=== PATIENT | male | born 1960 | race Caucasian/White ===

== ENCOUNTER 2017-08-13 20:40 | Emergency (ER) | payer BC ==
[2017-08-13 20:51] VITALS: BP 140/91
[2017-08-13] MEDS ORDERED: Lidocaine 2% PF * 5 ML VIAL INJ ONE ×3 (21:02→21:42)
[2017-08-13] MEDS ORDERED: Bupivacaine 0.25% SDV* 30 ML INJ ONE (21:03)
[2017-08-13] MEDS ORDERED: Tetan/Diph/Pertus SYR(Tdap)* 0.5 ML SYR(BOOSTRIX) use SYR IM ONE (21:04)
--- NOTE | 2017-08-13 21:09 | UC ---
Laceration HPI - HPI Summary HPI Summary: This is a 57-year-old male that presents here with approximately 8 hour old skin injuries to his right third fourth and fifth fingers. Injuries to his fourth and fifth fingers are small avulsions. He has a large flap laceration of his right middle finger. He is unsure of his last tetanus shot. - History Of Current Complaint Chief Complaint: UCUpperExtremity Stated Complaint: FINGERS LACS Time Seen by Provider: 08/13/17 20:55 Hx Obtained From: Patient Laceration Location: Finger Mechanism Of Injury: Sharp Trauma Onset/Duration: Sudden Onset Severity: Mild Pain Intensity: 4 Pain Scale Used: 0-10 Numeric Aggravating Factors: Nothing Hands: 1 - flap lac - Allergies/Home Medications Allergies/Adverse Reactions: Allergies Allergy/AdvReac Type Severity Reaction Status Date / Time bupropion [From Wellbutrin] Allergy Severe Rash Verified 08/13/17 20:51 PMH/Surg Hx/FS Hx/Imm Hx Previously Healthy: Yes GI/ History: Gastroesophageal Reflux - Surgical History Surgical History: Yes Surgery Procedure, Year, and Place: [facility]- FX (left) ankle + hardware, [facility]- (left) ulner nerve release & (left) little finger,. [facility]- (left) ankle; remove left distal fibula plate & screws - Family History Known Family History: Positive: Hypertension - Social History Alcohol Use: Weekly Alcohol Amount: 2-3/ weeks Substance Use Type: None Smoking Status (MU): Former Smoker Type: Cigarettes Length of Time of Smoking/Using Tobacco: 10 years Have You Smoked in the Last Year: No When Did the Patient Quit Smoking/Using Tobacco: 2010 - Immunization History Most Recent Tetanus Shot: unknown Review of Systems Constitutional: Negative Skin: Negative Eyes: Negative ENT: Negative Respiratory: Negative Cardiovascular: Negative Gastrointestinal: Negative Genitourinary: Negative Motor: Negative Neurovascular: Negative Musculoskeletal: Negative Neurological: Negative Psychological: Negative Is Patient Immunocompromised?: No All Other Systems Reviewed And Are Negative: Yes Physical Exam Triage Information Reviewed: Yes Appearance: Well-Appearing, No Pain Distress, Well-Nourished Vital Signs: Initial Vital Signs Temp 98 F 08/13/17 20:46 Pulse 82 08/13/17 20:46 Resp 20 08/13/17 20:46 BP 140/91 08/13/17 20:46 Pulse Ox 96 08/13/17 20:46 Vital Signs Reviewed: Yes Eyes: Positive: Conjunctiva Clear ENT: Positive: Hearing grossly normal. Negative: Nasal congestion, Nasal drainage, Tonsillar exudate, Trismus Neck: Positive: Supple, Nontender Respiratory: Positive: Lungs clear, Normal breath sounds, No respiratory distress Cardiovascular: Positive: RRR, No Murmur Abdomen Description: Positive: Nontender Bowel Sounds: Positive: Present Musculoskeletal Exam: Normal Neurological Exam: Normal Psychological Exam: Normal Skin Exam: Other - lac Laceration Repair - Laceration Repair 1 Procedure Summary: laceration repair right middle finger Description: Irregular - irregular flap laceration, flap pink but attacked by narrow island of tissue Laceration Size After Repair: Length (cm) - 3.1, Width (mm) - 2, Depth (mm) - 1- 3 Modified For Repair: No Type Injection: Digital Anesthesia Used: 2.0% Lido Cleansing Completed Via Routine Prep: Yes Irrigation With Pressure Irrigation Device: Yes Closure Material: Sutures Closure Method: Single Layer Suture Of: Skin Suture Type: Nylon - 8 5-0 nylon Laceration Course/Dx - Differential Dx - Laceration/Wound Provider Diagnoses: right middle finger laceration Discharge - Sign-Out/Discharge Documenting (check all that apply): Discharge/Admit/Transfer - Discharge Plan Condition: Critical Disposition: HOME Patient Education Materials: Finger Laceration (ED) Referrals: Lisandro Ortiz DO [Primary Care Provider] - Additional Instructions: tylenol or advil for pain elevate elevate elevate recheck 7/8 in AM you have a flap laceration and we need to check the viability of the flap you may keep dressing on until recheck suture removal in about 10 days - Billing Disposition and Condition Condition: CRITICAL Disposition: Home
== END 2017-08-13 22:30 | disposition home or self-care (01) ==
LOC: UCEAST 20:40
DX: S61.212A Laceration without foreign body of right middle finger without damage to nail, initial encounter (principal); S60.944A Unspecified superficial injury of right ring finger, initial encounter; S60.946A Unspecified superficial injury of right little finger, initial encounter; Z88.8 Allergy status to other drugs, medicaments and biological substances; Z87.891 Personal history of nicotine dependence; X58.XXXA Exposure to other specified factors, initial encounter; Y92.9 Unspecified place or not applicable
CPT/HCPCS: 12002; 90715; 99211; G0463

== ENCOUNTER → 2018-05-13 16:08 | Emergency (ER) | payer BC, OTHER ==
[~2018-05-13 16:08] MED LIST: Cephalexin CAP* 500 MG PO ONE; HYDROcodone/ACETAMIN 5-325 MG* 1 TAB PO ONE; Lidocaine 1% INJ* 10 MG/ML 30 ML SDV ONE; Tetan/Diph/Pertus SYR(Tdap)* 0.5 ML SYR(BOOSTRIX) use SYR IM ONE; fentaNYL* 50 MCG/ML 2 ML VIAL (100 MCG VIAL) IV SLOW PU ONE; fentaNYL* 50 MCG/ML 2 ML VIAL (100 MCG VIAL) ONE
--- NOTE | 2018-05-13 16:41 | ED ---
Upper Extremity Pain - HPI Summary HPI Summary: This patient is a 58 year old M brought in by EMS with a chief complaint of left hand injury since just [employer]. 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 The patient rates the pain 5/10 in severity. The patient states he heard a crack at the time of injury. The last time he had a tetanus shot was a while ago. Vitals in the room: HR 71 bpm, BP 138/81. - History of Current Complaint Chief Complaint: EDExtremityUpper Stated Complaint: FRACTURED FINGERS PER EMS Time Seen by Provider: 05/13/18 16:29 Hx Obtained From: Patient Mechanism Of Injury: Other - crushed Onset/Duration: Started Minutes Ago Pain Location: Hand - left - Allergies/Home Medications Allergies/Adverse Reactions: Allergies Allergy/AdvReac Type Severity Reaction Status Date / Time bupropion [From Wellbutrin] Allergy Severe Rash Verified 05/13/18 16:19 PMH/Surg Hx/FS Hx/Imm Hx Endocrine/Hematology History: Denies: Hx Sickle Cell Disease Cardiovascular History: Denies: Other Cardiovascular Problems/Disorders Respiratory History: Denies: Other Respiratory Problems/Disorders GI History: Reports: Hx Gastroesophageal Reflux Disease - ON MEDICATION UNDER CONTROL History: Denies: Other Problems/Disorders Musculoskeletal History: Reports: Hx Orthopedic Injury - (left) ankle FX Denies: Other Musculoskeletal History Sensory History: Reports: Hx Contacts or Glasses - READING Denies: Hx Hearing Aid Opthamlomology History: Reports: Hx Contacts or Glasses - READING Neurological History: Denies: Other Neuro Impairments/Disorders - Surgical History Surgery Procedure, Year, and Place: [facility]- FX (left) ankle + hardware, [facility]- (left) ulner nerve release & (left) little finger,. [facility]- (left) ankle; remove left distal fibula plate & screws Hx Anesthesia Reactions: No Infectious Disease History: No Infectious Disease History: Denies: Hx Clostridium Difficile, Hx Hepatitis, Hx Human Immunodeficiency Virus (HIV), Hx of Known/Suspected MRSA, Hx Shingles, Hx Tuberculosis, Hx Known/ Suspected VRE, Hx Known/Suspected VRSA, History Other Infectious Disease, Traveled Outside the [place] in Last 30 Days - Family History Known Family History: Positive: Hypertension - Social History Occupation: Employed Full-time Alcohol Use: Weekly Alcohol Amount: 2-3/ weeks Substance Use Type: Reports: None Smoking Status (MU): Former Smoker Type: Cigarettes Length of Time of Smoking/Using Tobacco: 10 years Have You Smoked in the Last Year: No Review of Systems Positive: Decreased ROM - left hand Positive: Other - laceration on left fourth finger All Other Systems Reviewed And Are Negative: Yes Physical Exam - Summary Physical Exam Summary: Constitutional: Well-developed, Well-nourished, Alert. Skin: Warm, Dry. There is a 1cm laceration on the medial and lateral aspect of the distal phalanx of the left fourth digit. Distal sensation is intact. There is a subungual hematoma. HENT: Normocephalic; Atraumatic Eyes: Conjunctiva normal Neck: Musculoskeletal ROM normal neck. Cardio: Rhythm regular, rate normal, Heart sounds normal; Intact distal pulses; The pedal pulses are 2+ and symmetric. Radial pulses are 2+ and symmetric. Pulmonary/Chest wall: Effort normal. Abd: Soft. Neuro: Alert, Oriented x3 Psych: Mood and affect Normal Triage Information Reviewed: Yes Vital Signs On Initial Exam: Initial Vitals Temp Pulse Resp BP Pulse Ox 98.4 F 72 18 138/81 95 05/13/18 16:13 05/13/18 16:13 05/13/18 16:13 05/13/18 16:13 05/13/18 16:13 Vital Signs Reviewed: Yes Procedures - Procedure Summary Procedure Summary: Digital block of left fourth finger - Laceration/Wound Repair 1 Location: upper extremity - left hand, 4th digit, lateral Description: Linear Length, Depth and Shape: Linear, 5 mm Betadine Prep?: Yes Irrigated w/ Saline (ccs): 50 Laceration/Wound Explored: clean Closure: Single Layer Suture Type: Nylon Number of Sutures: 1 Layer Closure?: No 2 Location: upper extremity - left hand, medial, 5 mm Description: Linear Anesthesia: Local Length, Depth and Shape: Linear, 5mm Betadine Prep?: Yes Irrigated w/ Saline (ccs): 50 - . Laceration/Wound Explored: clean Closure: Single Layer Suture Type: Nylon Number of Sutures: 2 Layer Closure?: No Sterile Dressing Applied?: No 3 Location: upper extremity - left hand, 4th digit, medial Description: Linear Anesthesia: Local Length, Depth and Shape: linear, 5 mm Betadine Prep?: Yes Irrigated w/ Saline (ccs): 50 Laceration/Wound Explored: clean Closure: Single Layer Suture Type: Nylon Number of Sutures: 2 - Nail Trepanation Left 4th Digit Method of Drainage: nail cauterized Sterile Dressing Applied: Yes Finger Splint: No Diagnostics - Vital Signs Vital Signs Temp Pulse Resp BP Pulse Ox 05/13/18 16:28 20 05/13/18 16:13 98.4 F 72 18 138/81 95 - Laboratory Lab Statement: Any lab studies that have been ordered have been reviewed, and results considered in the medical decision making process. - Radiology hand x ray Radiology Interpretation Completed By: Radiologist Summary of Radiographic Findings: Minimally displaced comminuted fracture involving the tuft of the fourth distal. phalanx with overlying soft tissue swelling. Old healed fracture at the tuft of the third distal phalanx noted. Old healed fracture. at the fifth metacarpal. Negative for dislocation. Mild polyarticular osteoarthritis. ED physician has reviewed this report. Course/Dx - Course Course Of Treatment: This patient is a 58 year old M brought in by EMS with a chief complaint of left hand injury since just [employer]. 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 The patient rates the pain 5/10 in severity. Left hand x ray reveals, per radiologist, Minimally displaced comminuted fracture involving the tuft of the fourth distal. phalanx with overlying soft tissue swelling. Old healed fracture at the tuft of the third distal phalanx noted. Old healed fracture. at the fifth metacarpal. Negative for dislocation. Mild polyarticular osteoarthritis. In the ED course the patient was given Fentanyl, Hydrocodone, Cephalexin, and Tetan. We discussed patient care with Dr. Solis, Orthopedics, and they recommended follow up next week, trephination of the nail, loose closure, and antibiotics. Patient will be discharged with prescription for Cephalexin and follow up from Dr. Solis. The patient is agreeable with this plan. - Diagnoses Provider Diagnoses: Subungual hematoma of digit of hand, Open fracture of phalanx of digit of hand , Finger laceration - Physician Notifications Discussed Care of Patient With: Tyree Solis - recommended antibiotics, trephination of the nail Time Discussed With Above Provider: 18:45 Instructed by Provider To: Have Pt Call For Appt. - next week Discharge - Discharge Plan Prescriptions: Cephalexin CAP* [Keflex CAP*] 500 mg PO QID #20 cap HYDROcodone/ACETAMIN 5-325 MG* [[facility] 5-325 TAB*] 1 tab PO Q6H PRN #10 tab MDD 4 PRN Reason: Pain Scale 6-10 Patient Education Materials: Subungual Hematoma (ED), Finger Fracture (ED), Finger Laceration (ED) Referrals: Lisandro Ortiz DO [Primary Care Provider] - Tyree Solis MD [Medical Doctor] - 1 Week Additional Instructions: Follow up with Dr. Solis next week. - Attestation Statements Document Initiated by Scribe: Yes Documenting Scribe: Wisam Munoz Provider For Whom Scribe is Documenting (Include Credential): Fly Paul MD Scribe Attestation: Wisam Cordova, scribed for Fly Paul MD on 05/13/18 at 1958. Status of Scribe Document: Viewed
[2018-05-13 20:15] VITALS: BP 138/101
== END | disposition home or self-care (01) ==
LOC: ED 16:08
DX: S61.215A Laceration without foreign body of left ring finger without damage to nail, initial encounter (principal); W31.9XXA Contact with unspecified machinery, initial encounter; Y92.9 Unspecified place or not applicable; K21.9 Gastro-esophageal reflux disease without esophagitis; Z87.891 Personal history of nicotine dependence
CPT/HCPCS: 12002; 90715; 96374; 99283; A9270-GY; J3010

== ENCOUNTER → 2018-05-19 19:44 | Emergency (ER) | payer BC, OTHER ==
[~2018-05-19 19:44] MED LIST changes: -Cephalexin CAP* 500 MG PO ONE; -HYDROcodone/ACETAMIN 5-325 MG* 1 TAB PO ONE; -Lidocaine 1% INJ* 10 MG/ML 30 ML SDV ONE; +Sulfamethox/Trimethoprim DS 800/160* TAB PO ONE; -Tetan/Diph/Pertus SYR(Tdap)* 0.5 ML SYR(BOOSTRIX) use SYR IM ONE; -fentaNYL* 50 MCG/ML 2 ML VIAL (100 MCG VIAL) IV SLOW PU ONE; -fentaNYL* 50 MCG/ML 2 ML VIAL (100 MCG VIAL) ONE
--- NOTE | 2018-05-19 20:47 | ED ---
Skin Complaint - HPI Summary HPI Summary: Patient complains of sudden onset swelling and erythema to the dorsal surface of right hand. Denies known trauma, other than this was blown IV site when patient was here in the ED 1 week ago for left hand trauma. . Patient states there was no evidence of ecchymosis or swelling for past 6 days after initial ED visit. Patient concerned he has an infection, denies pain, new trauma, fever , loss of function or strength in right hand, N/V. Patient also states redness has resolved somewhat since onset this afternoon. Patient on Keflex for fracture of distal tip of third digit of left hand prescribed on prior visit to the ED 1 week ago. No anti-coag. Denies history of similar symptoms. - History of Current Complaint Chief Complaint: EDExtremityUpper Time Seen by Provider: 05/19/18 20:38 Stated Complaint: I THINK I HAVE AN INFECTION PER PT Hx Obtained From: Patient Onset/Duration: Started Hours Ago Skin Exposure Onset/Duration: Hours Ago Timing: Constant Current Severity: None Pain Intensity: 0 Pain Scale Used: 0-10 Numeric Skin Location: Discrete Aggravating Symptom(s): Nothing Alleviating Symptom(s): Nothing Associated Signs & Symptoms: Negative - Allergy/Home Medications Allergies/Adverse Reactions: Allergies Allergy/AdvReac Type Severity Reaction Status Date / Time bupropion [From Wellbutrin] Allergy Severe Rash Verified 05/19/18 20:07 PMH/Surg Hx/FS Hx/Imm Hx Endocrine/Hematology History: Denies: Hx Sickle Cell Disease Cardiovascular History: Denies: Hx Pacemaker/ICD, Other Cardiovascular Problems/Disorders Respiratory History: Denies: Other Respiratory Problems/Disorders GI History: Reports: Hx Gastroesophageal Reflux Disease - ON MEDICATION UNDER CONTROL History: Denies: Other Problems/Disorders Musculoskeletal History: Reports: Hx Orthopedic Injury - (left) ankle FX Denies: Other Musculoskeletal History Sensory History: Reports: Hx Contacts or Glasses - READING Denies: Hx Hearing Aid Opthamlomology History: Reports: Hx Contacts or Glasses - READING EENT History: Denies: Hx Deafness Neurological History: Denies: Hx Dementia, Other Neuro Impairments/Disorders Psychiatric History: Denies: Hx Autism - Surgical History Surgery Procedure, Year, and Place: [facility]- FX (left) ankle + hardware, [facility]- (left) ulner nerve release & (left) little finger,. 07/97 [facility]- (left) ankle; remove left distal fibula plate & screws Hx Anesthesia Reactions: No Infectious Disease History: No Infectious Disease History: Denies: Hx Clostridium Difficile, Hx Hepatitis, Hx Human Immunodeficiency Virus (HIV), Hx of Known/Suspected MRSA, Hx Shingles, Hx Tuberculosis, Hx Known/ Suspected VRE, Hx Known/Suspected VRSA, History Other Infectious Disease, Traveled Outside the [place] in Last 30 Days - Family History Known Family History: Positive: Hypertension - Social History Alcohol Use: Weekly Alcohol Amount: 2-3/ week Substance Use Type: Reports: None Smoking Status (MU): Former Smoker Type: Cigarettes Length of Time of Smoking/Using Tobacco: 10 years Have You Smoked in the Last Year: No Review of Systems Constitutional: Negative Eyes: Negative ENT: Negative Cardiovascular: Negative Respiratory: Negative Gastrointestinal: Negative Genitourinary: Negative Musculoskeletal: Negative Skin: Other Neurological: Negative Psychological: Normal All Other Systems Reviewed And Are Negative: Yes Physical Exam - Summary Physical Exam Summary: Area of erythema and warmth to dorsal surface of right hand, with minimal swelling. PMS intact distally. Director New Product strength normal. No pain with palpation of wrist. No evidence of abscess, wound, deformity. Triage Information Reviewed: Yes Vital Signs On Initial Exam: Initial Vitals Temp Pulse Resp BP Pulse Ox 97.8 F 71 16 149/96 94 05/19/18 20:00 05/19/18 20:00 05/19/18 20:00 05/19/18 20:00 05/19/18 20:00 Vital Signs Reviewed: Yes Appearance: Positive: Well-Appearing Skin: Positive: Warm Head/Face: Positive: Normal Head/Face Inspection Eyes: Positive: Normal Neck: Positive: Supple Respiratory/Lung Sounds: Positive: Clear to Auscultation Cardiovascular: Positive: Normal Abdomen Description: Positive: Nontender Musculoskeletal: Positive: Normal Neurological: Positive: Normal Psychiatric: Positive: Normal AVPU Assessment: Alert - [place]ara Coma Scale Best Eye Response: 4 - Spontaneous Best Motor Response: 6 - Obeys Commands Best Verbal Response: 5 - Oriented Coma Scale Total: 15 Diagnostics - Vital Signs Vital Signs Temp Pulse Resp BP Pulse Ox 05/19/18 20:00 97.8 F 71 16 149/96 94 - Laboratory Lab Statement: Any lab studies that have been ordered have been reviewed, and results considered in the medical decision making process. Course/Dx - Course Course Of Treatment: Patient complains of sudden onset swelling and erythema to the dorsal surface of right hand. Denies known trauma, other than this was blown IV site when patient was here in the ED 1 week ago for left hand trauma. . Patient states there was no evidence of ecchymosis or swelling for past 6 days after initial ED visit. Patient concerned he has an infection, denies pain , new trauma, fever, loss of function or strength in right hand, N/V. Patient also states redness has resolved somewhat since onset this afternoon. Patient on Keflex for fracture of distal tip of third digit of left hand prescribed on prior visit to the ED 1 week ago. No anti-coag. Denies history of similar symptoms. Physical exam:Area of erythema and warmth to dorsal surface of right hand, with minimal swelling. PMS intact distally. Director New Product strength normal. No pain with palpation of wrist. No evidence of abscess, wound, deformity. Vital signs within normal limits. Patient on Keflex. Patient switched to Bactrim, and advised to observe erythema on the hand and return for any new or worsening symptoms. Patient understands and approves of plant - Diagnoses Provider Diagnoses: Cellulitis Discharge - Sign-Out/Discharge Documenting (check all that apply): Patient Departure Patient Received Moderate/Deep Sedation with Procedure: No - Discharge Plan Condition: Stable Disposition: HOME Prescriptions: Sulfamethox/Trimethoprim DS* [Bactrim DS 800/160 TAB*] 1 tab PO BID 5 Days #10 tab Patient Education Materials: Cellulitis (ED) Referrals: Lisandro Ortiz DO [Primary Care Provider] - Additional Instructions: Stop taking Keflex. Take Bactrim instead. Return to the ED for any new or worsening symptoms. - Billing Disposition and Condition Condition: STABLE Disposition: Home
[2018-05-19 20:56] VITALS: BP 144/96
== END | disposition home or self-care (01) ==
LOC: ED 19:44
DX: L03.113 Cellulitis of right upper limb (principal); Z87.891 Personal history of nicotine dependence; K21.9 Gastro-esophageal reflux disease without esophagitis; S62.633A Displaced fracture of distal phalanx of left middle finger, initial encounter for closed fracture; X58.XXXA Exposure to other specified factors, initial encounter; Y92.9 Unspecified place or not applicable
CPT/HCPCS: 99282; A9270-GY

== ENCOUNTER 2018-11-21 10:39 | Observation (INO) | payer BC ==
--- NOTE | 2018-11-21 11:09 | ED ---
Neurological HPI - HPI Summary HPI Summary: Pt is a 58 y/o M presenting to the ED via EMS for a chief complaint of left- sided numbness and paresthesia above the left eyebrow through the back of the head that began on 11/21/18. Pt went to work today and arrived to the ED via EMS. Pt admits slurred speech while on a phone call on 11/21/18 that has since resolved. Pt also describes a sharp pain and numbness that radiates down the left arm. Pt states he had no symptoms when he went to sleep at 23:00 on . Pt denies neck pain, headache, or any other facial numbness. Pt admits he had a fall one week ago after falling down 4 steps after which pt had hip pain. Pt went to see another physician 2-3 days after the fall and had x-rays performed with unknown findings. Pt has a PSHx of hip surgery. Pt denies a PMHx of HTN, hypercholesterolemia, or cardiac problems. - History of Current Complaint Chief Complaint: EDNeurologicalDeficit Stated Complaint: NUMBNESS ON LEFT SIDE PER EMS Time Seen by Provider: 11/21/18 10:55 Hx Obtained From: Patient Onset/Duration: Sudden Onset, Started hours ago, Still Present Timing: Sudden Onset Onset Severity: Moderate Current Severity: Moderate Neurological Deficit Location: Facial - Left side above the eyebrow to the head Headache Location: Frontal - Above left eyebrow Pain Intensity: 0 Pain Scale Used: 0-10 Numeric Character: Sharp - Pain down the left arm, Numbness/Tingling - Above left eyebrow and left arm; negative neck pain, Paresthesia - Above left eyebrow and left arm, Impaired Speech - Slurred speech, resolved, Other: - Negative CHIU or neck pain Aggravating: Nothing Alleviating: Nothing Associated Signs and Symptoms: Positive: Pain - Sharp pain that radiates down the left arm; hip pain, Numbness - Above the left eyebrown and down the left arm. Negative: Headache, Neck Pain/Stiffness - Allergy/Home Medications Allergies/Adverse Reactions: Allergies Allergy/AdvReac Type Severity Reaction Status Date / Time bupropion [From Wellbutrin] Allergy Severe Rash Verified 05/19/18 20:07 Home Medications: Home Medications Meloxicam [Mobic] 15 mg PO DAILY 11/21/18 [History Confirmed 11/21/18] Omeprazole 20 mg PO DAILY 11/21/18 [History Confirmed 11/21/18] PMH/Surg Hx/FS Hx/Imm Hx Previously Healthy: Yes Endocrine/Hematology History: Denies: Hx Sickle Cell Disease Cardiovascular History: Denies: Hx Hypercholesterolemia, Hx Hypertension, Hx Pacemaker/ICD, Other Cardiovascular Problems/Disorders Respiratory History: Denies: Other Respiratory Problems/Disorders GI History: Reports: Hx Gastroesophageal Reflux Disease - ON MEDICATION UNDER CONTROL History: Denies: Other Problems/Disorders Musculoskeletal History: Reports: Hx Orthopedic Injury - (left) ankle FX Denies: Other Musculoskeletal History Sensory History: Reports: Hx Contacts or Glasses - READING Denies: Hx Deafness, Hx Hearing Aid Opthamlomology History: Reports: Hx Contacts or Glasses - READING Neurological History: Denies: Hx Dementia, Other Neuro Impairments/Disorders Psychiatric History: Denies: Hx Autism - Surgical History Surgical History: Yes Surgery Procedure, Year, and Place: [facility]- FX (left) ankle + hardware, [facility]- (left) ulner nerve release & (left) little finger,. [facility]- (left) ankle; remove left distal fibula plate & screws Hx Anesthesia Reactions: No Infectious Disease History: No Infectious Disease History: Denies: Hx Clostridium Difficile, Hx Hepatitis, Hx Human Immunodeficiency Virus (HIV), Hx of Known/Suspected MRSA, Hx Shingles, Hx Tuberculosis, Hx Known/ Suspected VRE, Hx Known/Suspected VRSA, History Other Infectious Disease, Traveled Outside the [place] in Last 30 Days - Family History Known Family History: Positive: Hypertension - Social History Alcohol Use: Weekly Alcohol Amount: 2-3/ week Hx Substance Use: No Substance Use Type: Reports: None Hx Tobacco Use: Yes Smoking Status (MU): Former Smoker Type: Cigarettes Length of Time of Smoking/Using Tobacco: 10 years Have You Smoked in the Last Year: No Review of Systems Positive: Arthralgia - Hip from previous fall, Myalgia - Radiates down the left arm; negative neck pain Neurological: Negative - Other facial numbness Positive: Paresthesia - Above left eyebrow and left arm, Numbness - Above the left eyebrow and left arm, Slurred Speech - Resolved. Negative: Headache All Other Systems Reviewed And Are Negative: Yes Physical Exam - Summary Physical Exam Summary: Appearance: The patient is well-nourished in no acute distress and in no acute pain. Skin: The skin is warm and dry, and skin color reflects adequate perfusion. HEENT: The head is normocephalic and atraumatic. The pupils are equal and reactive. The conjunctivae are clear and without drainage. Nares are patent and without drainage. Mouth reveals moist mucous membranes, and the throat is without erythema and exudate. The external ears are intact. The ear canals are patent and without drainage. The tympanic membranes are intact. Neck: The neck is supple with full range of motion and non-tender. There are no carotid bruits. There is no neck vein distension. Respiratory: Chest is non-tender. Lungs are clear to auscultation and breath sounds are symmetrical and equal. Cardiovascular: Heart is regular rate and rhythm. There is no murmur or rub auscultated. There is no peripheral edema and pulses are symmetrical and equal. Abdomen: The abdomen is soft and non-tender. There are normal bowel sounds heard in all four quadrants and there is no organomegaly palpated. Musculoskeletal: There is no back tenderness noted. Extremities are non-tender with full range of motion. There is good capillary refill. There is no peripheral edema or calf tenderness elicited. Neurological: Patient is alert and oriented to person, place and time. The patient has symmetrical motor strength in all four extremities. Cranial nerves are grossly intact. Deep tendon reflexes are symmetrical and equal in all four extremities. Psychiatric: The patient has an appropriate affect and does not exhibit any anxiety or depression. Triage Information Reviewed: Yes Vital Signs On Initial Exam: Initial Vitals Temp Pulse Resp BP Pulse Ox 97.9 F 67 19 132/92 96 11/21/18 10:45 11/21/18 10:45 11/21/18 10:45 11/21/18 10:45 11/21/18 10:45 Vital Signs Reviewed: Yes - Ciara Coma Scale Best Eye Response: 4 - Spontaneous Best Motor Response: 6 - Obeys Commands Best Verbal Response: 5 - Oriented Coma Scale Total: 15 Procedures - Sedation Patient Received Moderate/Deep Sedation with Procedure: No Diagnostics - Vital Signs Vital Signs Temp Pulse Resp BP Pulse Ox 11/21/18 10:45 97.9 F 67 19 132/92 96 - Laboratory Result Diagrams: 11/21/18 11:27 11/21/18 11:27 Lab Statement: Any lab studies that have been ordered have been reviewed, and results considered in the medical decision making process. - CT Brain CT CT Interpretation Completed By: Radiologist Summary of CT Findings: Brain CT IMPRESSION: NO ACUTE INTRACRANIAL PATHOLOGY. Reviewed by ED physician. 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: Both Correctly Best Gaze (Only Horizontal Eye Movement): Normal Visual Field Testing: No Visual Loss Facial Paresis-Pt to Smile & Close Eyes or Grimace Symmetry: Normal/Symmetrical Motor Function - Right Arm: No Drift-Holds 10 Seconds Motor Function - Left Arm: No Drift-Holds 10 Seconds Motor Function - Right Leg: No Drift-Holds 10 Seconds Motor Function - Left Leg: No Drift-Holds 10 Seconds Limb Ataxia-Must be out of Proportion to Weakness Present: Absent Sensory (Use Pinprick to Test Arms/Legs/Trunk/Face): Pinprick Less on Affected - Decreased sensation on left forehead Best Language (Describe Picture, Name Items): No Aphasia Dysarthria (Read Several Words): Normal Extinction and Inattention: No Abnormality Total Score: 1 NIH Stroke Scale Comment: 1, decreased sensation on the left forehead. Course/Dx - Course Course Of Treatment: Mr. Funes was fine last night and then woke up this morning with tingling and numbness in the left side of his forehead, parietal scalp and occiput. He denies any other symptomatology and his NIH stroke scale was 1. Because this is possibly 12 hours old and therefore the patient was not a thrombolytic candidate, and it represents a small distribution so there would not be a retrievable clot no code breaux was called. I did consult with Dr. Post who recommended admission to the hospitalist. I spoke with Dr. Collins and the patient will be admitted to workup a stroke. - Diagnoses Provider Diagnoses: CVA (cerebral vascular accident) Discharge ED - Sign-Out/Discharge Documenting (check all that apply): Patient Departure - Admit - Discharge Plan Condition: Stable Disposition: ADMITTED TO [facility] - Billing Disposition and Condition Condition: STABLE Disposition: Admitted to [facility] - Attestation Statements Document Initiated by Scribe: Yes Documenting Scribe: Alejandra Andres Provider For Whom Scribe is Documenting (Include Credential): Clayton Jay MD Scribe Attestation: I, Alejandra Andres, scribed for Clayton Jay MD on 11/21/18 at 1947. Scribe Documentation Reviewed: Yes Provider Attestation: The documentation as recorded by the scribe, Alejandra Andres accurately reflects the service I personally performed and the decisions made by me, Clayton Jay MD Status of Scribe Document: Viewed Consult Consult: At 13:22, I spoke with Dr. Collins about admitting the pt to [facility].
--- OUTSIDE RECORDS SUMMARY | 2018-11-21 11:15 | XMS REPORT | Continuity of Care Document ---
:1960 External Reference #:[id number] Author Name Lisandro Ortiz D.O. Address [address] [place] [address] Care Team Providers Name Role Phone HCP given Care Team Information Follow Up Clerk Unavailable [facility] - Care Team Information Follow Up Clerk [phone] [facility] - Sleep Disorder Care Team Information Follow Up Clerk [phone] Diagnostic Problems Active Problems Provider Date Gastroesophageal reflux disease Milan Nation M.D. Onset: 01/13/2012 Obstructive sleep apnea syndrome Milan Nation M.D. Onset: 12/23/2012 Impaired fasting glycaemia Milan Nation M.D. Onset: 12/23/2012 Common cold Lisandro Ortiz D.O. Onset: 08/03/2013 Psoriasis Lisandro Ortiz D.O. 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 04/23/10: Discussed AHA exercise goal at least 30min at least 5d/wk Sun Exposure moderate amount of sun exposure Sun Exposure Uses sunscreen Seat Belt/Car Seat always uses seat belt Allergies, Adverse Reactions, Alerts Active Allergies Reaction Severity Comments Date Wellbutrin Rash, SOB 04/07/2010 Medications Active Medications SIG Qnty Indications Ordering Date Provider Omeprazole take one capsule by 90caps K21.9 Lisandro Ortiz, 03/25/2018 20mg mouth every day D.O. Capsules DR Bravo Take 1/2-1 Tablet 18tabs 607.84 CarinaMilan baker, 03/29/2012 100mg Tablets By Mouth Once Daily M.D. as Needed For Erectile Dysfunction Maximum Daily Dose = 1 Tablet Immunizations CPT Code Status Date Vaccine Lot # [id number] Given 05/13/2018 Adacel or Boostrix, TDaP [id number] Given 08/13/2017 Adacel or Boostrix, TDaP 83015 Given 11/12/2014 Influenza Virus Vaccine, Quadrivalent, Split, [id number] Preservative Free 81208 Given 05/15/2014 Adacel or Boostrix, TDaP [id number] Given 11/08/2013 Flu, Split Virus 3Yrs 62164 Given 12/23/2012 Flu, Split Virus 3Yrs [id number] 07119 Given 11/25/2011 Flu, Split Virus 3Yrs [id number] 27932 Given 04/23/2010 Pneumococcal Immunization [id number] 90424 Given 04/23/2010 Adacel or Boostrix, TDaP [id number] Vital Signs Date Vital Result Comment 11/16/2018 4:26pm BP Systolic 132 mmHg BP Diastolic 84 mmHg Weight 286.00 lb 03/25/2018 12:07pm BP Systolic 130 mmHg BP Diastolic 80 mmHg Body Temperature 98.0 F Height 73.25 inches 6'1.25" with boots Weight 282.00 lb with boots BMI (Body Mass Index) 36.9 kg/m2 Results Test Date Facility Test Result H/L Range Note Xray 11/16/2018 [facility] X-Ray, Hips, 2 View <pending> 1 With Pelvis - Right 1 right hip with mod to severe OA, left hip with mild to mod OA. no fracture. Procedures Date Code Description Status 11/16/2018 40322 Radiologic Exam Hip Unilateral With Pelvis 2-3 Views Completed 12/05/2015 48210193 Colonoscopy Completed Medical Devices Description No Information Available Encounters Type Date Location Provider Dx Diagnosis Office Visit 11/16/2018 Main Office Lisandro Ortiz, R10.31 Right lower 3:45p D.O. quadrant pain M25.551 Pain in right hip Assessments Date Code Description Provider 11/16/2018 R10.31 Right lower quadrant pain Lisandro Ortiz D.O. 11/16/2018 M25.551 Pain in right hip Lisandro Ortiz D.O. Plan of Treatment 03/25/2018 - Lisandro Ortiz D.O.K21.9 Gastro-esophageal reflux disease without esophagitisNew Medication:Omeprazole 20 mg - take one capsule by mouth every dayFollow up:DM when rptgggdvdxB87.562 Pain in left kneeR05 Cough Functional Status Description No Information Available Mental Status Description No Information Available Referrals Description No Information Available
[2018-11-21 12:01] LABS: INR 1.01 (0.82-1.09)
[2018-11-21 12:18] LABS: ABS Eosinophils 0.1 10^3/ul (0-0.6); ABS Lymphocytes 1.5 10^3/ul (1.0-4.8); ABS Monocytes 0.5 10^3/ul (0-0.8); ABS Neutrophils 3.1 10^3/ul (1.5-7.7); Eosinophil % 2.2 %; Hematocrit 44 % (42-52); Hemoglobin 15.1 g/dL (14.0-18.0); Lymphocyte % 28.2 %; Mean Corpuscular HGB Conc 35 g/dL (31-36); Mean Corpuscular Hemoglobin 31 pg (27-31); Mean Corpuscular Volume 90 fL (80-94); Mean Platelet Volume 8.2 fL (7.4-10.4); Platelet Count 227 10^3/uL (150-450); Red Blood Count 4.84 10^6 /uL (4.18-5.48); Red Cell Distribution Width 13 % (10-15); White Blood Count 5.2 10^3/uL (3.5-10.8)
[2018-11-21] MEDS ORDERED: Ondansetron INJ* 2 MG/ML VIAL IV PRN (14:17)
[2018-11-21] MEDS ORDERED: Acetaminophen TAB* 325 MG PO PRN (14:17)
[2018-11-21] MEDS: Aspirin EC TAB* 81 MG TAB.EC PO SCH (14:56)
--- NOTE | 2018-11-21 15:26 | CONS ---
NEUROLOGY CONSULTATION NOTE: DATE OF CONSULT: 11/21/18 CONSULTING PROVIDER: Dr. Clayton Jay. REASON FOR CONSULT: Left-sided numbness. CHIEF COMPLAINT: Left head numbness and tingling sensation. 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 This started at 7 a.m. this morning. He was last known well last night at 11 p.m. on 11/20/18. He has no associated symptoms of weakness. He denied any headaches. He denied any rash. He did have some associated symptoms of slurred speech this morning and word-finding difficulty that completely resolved. He has no history of similar symptoms. He denied any chest pain, shortness of breath, palpitations, nausea, vomiting, or impairment in his bowel or bladder function. PAST MEDICAL HISTORY: GERD. MEDICATIONS: Omeprazole. The patient does not take aspirin. ALLERGIES: BUPROPION. FAMILY HISTORY: Mother with a cerebral aneurysm. Father of cardiovascular disease. SOCIAL HISTORY: The patient is , has children. 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 He denied any recent tobacco use. He quit 15 years ago. He had smoked 1 pack per day for 15 years. He does consume alcohol and drank about 3 to 4 beers yesterday. He usually drinks on the weekends. He denied any daily alcohol use. REVIEW OF SYSTEMS: A 14-point review of systems was obtained and otherwise negative except for what was mentioned in the HPI. PHYSICAL EXAMINATION: Vitals: Temperature of 97.9, pulse of 72, respiratory rate of 19, oxygen saturation of 95%, blood pressure of 132/92. NIH stroke scale is 1 to 2 for reduced sensation on the left side of the face. The patient is general well nourished, well developed, in no acute distress. Head: Atraumatic and normocephalic without any obvious abnormality. Neck is supple and symmetrical with no carotid bruit. Eyes: Conjunctivae/corneas are clear. Cardiovascular: Regular rate and rhythm with normal S1 and S2. Chest: Clear to auscultation bilaterally. Extremities: Normal range of motion with no cyanosis or edema. Skin: No lesions or lacerations. Psych: Affect is broad, normal mood. Easy to establish rapport. Neurological Examination: Mental status: Awake, alert, oriented to person, place, time, and general circumstance. Speech and language including repetition, expression, and comprehension were all assessed and found to be normal. Cranial Nerves: Pupils are equal, round, reactive to light. Extraocular muscles are intact. There is decreased sensation to light touch on the left hemicranial region up to the V1 distribution on the left side. It does not affect the left lower jaw. No slurred speech. Tongue is symmetric and midline with no atrophy or fasciculation. There is slightly flattening of the nasolabial fold on the left side. Motor Examination: 5/5 strength in the upper and lower extremities bilaterally. Reflexes 2+ throughout and 1+ at the ankles bilaterally. Downgoing plantar responses. Sensation is intact to light touch throughout. Spurling's sign is negative when looking towards the right and left. Coordination: Normal finger- to-nose bilaterally. Gait: Normal stance and gait. No ataxia. ASSESSMENT AND RECOMMENDATION: Mr. Raza Funes is a 58-year-old man with no significant cardiovascular risk factor other than a family history of cerebral aneurysm, who presented with a sudden onset of left-sided hemiparesthesia that is now localized to the left hemicranial region mostly involving the V1 as well as the greater occipital notch region. Given the patient's persistent symptoms , we are concerned about a possible acute stroke. Other differential diagnoses is early zoster, although he does not have any rash or pain around that area. I discussed the case with Will. The patient is having increase in lacrimation in the left eye. Other d/d would be atypical painless trigeminal cephalgia without the pain. 1. Possible mild stroke versus transient ischemic attack, admit to the hospital service. Please obtain an MRI of the brain, MRA head and neck, CMP, B12, TSH, B1 level. Please start the patient on aspirin 81 mg daily and atorvastatin 40 mg nightly. Please obtain a lipid panel. Stroke education was not done yet until we get a final diagnosis. I ordered a 2-D echo with a bubble study. No need for an EEG as I do not suspect he had sensory seizures. Blood pressure range normotensive. Neuro checks every 4 hours. 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 Modified Jeana score is 0. I will continue to follow. [id number]/[facility] #: [id number] RUCHI
[2018-11-21 15:39] LABS: Albumin 4.2 g/dL (3.2-5.2); Albumin/Globulin Ratio 1.6 (1-3); Calcium 9.2 mg/dL (8.6-10.3); EGFR African American 113.2 (>60); EGFR Non-African American 93.5 (>60); Globulin 2.7 g/dL (2-4); HDL Cholesterol 42.3 mg/dL; Total Bilirubin 0.6 mg/dL (0.2-1.0); Total Protein 6.9 g/dL (6.4-8.9)
--- NOTE | 2018-11-21 16:17 | HP ---
CC: Dr. Milan Nation; Dr. Kenji Post * ADMISSION HISTORY AND PHYSICAL: DATE OF ADMISSION: 11/21/18 PRIMARY CARE PROVIDER: Dr. Milan Nation. MY ATTENDING WHILE IN THE HOSPITAL: Dr. Raf Quinonez.* (DICTATED BY VIKKI BALBUENA) CONSULTING NEUROLOGIST: Dr. Kenji Post. CHIEF COMPLAINT: Facial numbness x6 hours. HISTORY OF PRESENT ILLNESS: Mr. Funes is a 58-year-old male with past medical history significant for only GERD and possible obstructive sleep apnea based on history, who presents to the emergency department after he was feeling his normal state of health for a long period of time except for a fall in which he injured and had some musculo-skeletal injuries with persistent abdominal pain in his right lower quadrant which he is currently working up outpatient, who this morning woke up with numbness on the left side of his face, going back to cover most of his upper scalp. The patient never had anything like this before. The patient had no other symptoms. No fevers, chills, chest pain, burning, itching, nausea, vomiting, abdominal pain, diarrhea, or pain with urination. The patient denied chest pain, shortness of breath, or palpitations. The patient has never been diagnosed with atrial fibrillation. The patient has never had a cardiac evaluation for atrial fibrillation to his knowledge. The patient has not passed out recently. The patient has never had a migraine to his knowledge. The patient has had intermittent headaches, but has never had an aura associated with these. The patient has never had any other primary headache disorders and never seen a neurologist. The patient denies any swelling in his legs. No recent weight loss or weight gain. No recent changes in his appetite. No difficulty swallowing. No changes in his vision. In the emergency department, the patient had a negative CT of his head. The patient has had no other laboratory or vital sign abnormalities. The patient was seen in consultation by Dr. Kenji Post of Neurology who recommends admission for CVA evaluation. We were asked to evaluate the patient for admission to the hospital. PAST MEDICAL HISTORY: GERD, possible obstructive sleep apnea. PAST SURGICAL HISTORY: Ankle repair, suturing of the left hand. MEDICATIONS: Omeprazole 20 mg p.o. daily. ALLERGIES: BUPROPION. FAMILY HISTORY: The patient's father of unknown type of cancer. The patient's mother at 92 of complications of a spinal fracture. The patient has 2 sisters who are alive and well. SOCIAL HISTORY: The patient smoked for 10 to 15 years and quit approximately 15 years ago. The patient drinks alcohol occasionally. Denies illicit drug use. 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 He is and has 2 children. The patient's surrogate decision maker will be his , but she is currently in [place]. REVIEW OF SYSTEMS: A 10-point review of systems was reviewed and is negative except as above in the HPI. PHYSICAL EXAMINATION GENERAL: The patient is a 58-year-old male, who appears stated age and sitting comfortably in bed, in no acute distress. VITAL SIGNS: Temperature 97.9, pulse rate 66, respiratory rate 14, oxygen saturation 93% on room air, blood pressure 140/91. HEENT: Head: Normocephalic, atraumatic. Sclerae anicteric. Left-sided conjunctival injection with slight oculorrhea without purulent discharge. Nasal mucosa moist. Oral mucosa moist. NECK: Supple, nontender. No lymphadenopathy. No carotid bruits auscultated. No JVD. RESPIRATORY: Clear to auscultation bilaterally. No wheezes, rales, or rhonchi. Good air exchange bilaterally. CARDIAC: Regular rate and rhythm. No clicks, murmurs, gallops, or rubs. Pulses are 2+ in the bilateral dorsalis pedis, posterior tibialis, and radial areas. ABDOMEN: Soft, nontender, nondistended. Bowel sounds present and normoactive in all 4 quadrants. No hepatosplenomegaly. No abdominal bruits auscultated. No hepatojugular reflux. GENITOURINARY: No suprapubic or CVA tenderness. NEURO: Cranial nerves II through XII intact except for decreased sensation to light touch in the left forehead and scalp. Strength is 5/5 in all muscle groups tested. No other neurological deficits. PSYCHIATRIC: Pleasant and cooperative. SKIN: Clean, dry, and intact. No rashes. DIAGNOSTIC STUDIES/LAB DATA: Laboratory data: White blood cell count of 5.2, hemoglobin 15.1, platelet count 227. INR 1.01. Troponin I 0.0. CMP pending. Brain CT read as no acute intracranial abnormality. ASSESSMENT AND PLAN: Impression: Mr. Funes is a 58-year-old male with past medical history significant only for possible obstructive sleep apnea and gastroesophageal reflux disease, who presents to the emergency department with sudden onset of left-sided numbness with his face and scalp, which was reported upon waking, who will be admitted to the hospital for rule out cerebrovascular accident. 1. Facial numbness, possible cerebrovascular accident. The patient's symptoms could be related to a cerebrovascular accident, but given his relative paucity of risk factors, this will be further investigated and stroke mimics should be strongly considered. The patient will have risk stratification with a lipid profile and hemoglobin A1c. The patient had a negative brain CT as well as an MRA of the head and neck. Echocardiogram to assess for patent foramen ovale and risk factors for atrial fibrillation. The patient should have an outpatient workup for a possible obstructive sleep apnea. Stroke mimics may be possible with the patient given his conjunctival and vasomotor symptoms that could be best seen on CT, cluster headaches, hemicrania continua, paroxysmal hemicrania, though these would generally present with a headache and not with numbness. If the patient develops a headache, indomethacin trial for indomethacin responsive headache disorders could be entertained, although should be done after the patient has a negative brain MRI. Another consideration will be zoster infection of the trigeminal or facial nerves. The patient will be monitored for the development of vesicular rash. The patient has not had a shingles vaccine, this would be recommended for an outpatient primary or secondary prevention. 2. Gastroesophageal reflux disease. Continue omeprazole. 3. Possible obstructive sleep apnea. The patient should work up this through outpatient. 4. DVT prophylaxis: SCDs. The patient is low risk. 5. FEN: The patient will have a regular unrestricted diet and engage in activity as tolerated. TIME SPENT: Approximately 60 minutes was spent on the admission of this patient , 30 of which was spent [id number] with the patient obtaining history and physical and discussing treatment plan. The plan was discussed with my attending, Dr. Ramiro Collins, and he is in agreement. VIKKI BALBUENA [id number]/[facility] #: [id number] RUCHI
[2018-11-21 16:22] LABS: TSH (Thyroid Stimulating Horm) 1.1 mcIU/mL (0.34-5.60)
[2018-11-22 06:49] LABS: ABS Eosinophils 0.2 10^3/ul (0-0.6); ABS Lymphocytes 1.6 10^3/ul (1.0-4.8); ABS Monocytes 0.5 10^3/ul (0-0.8); Eosinophil % 2.9 %; Hematocrit 44 % (42-52); Hemoglobin 15.4 g/dL (14.0-18.0); Lymphocyte % 25.2 %; Mean Corpuscular HGB Conc 35 g/dL (31-36); Mean Corpuscular Hemoglobin 32 pg (27-31); Mean Corpuscular Volume 91 fL (80-94); Mean Platelet Volume 7.8 fL (7.4-10.4); Platelet Count 231 10^3/uL (150-450); Red Blood Count 4.88 10^6 /uL (4.18-5.48); Red Cell Distribution Width 13 % (10-15); White Blood Count 6.3 10^3/uL (3.5-10.8)
[2018-11-22 07:11] LABS: Calcium 9.1 mg/dL (8.6-10.3); Potassium 3.9 mmol/L (3.5-5.0)
[2018-11-22 07:17] LABS: BUN/Creatinine Ratio 15.9 (8-20); EGFR African American 107.3 (>60); EGFR Non-African American 88.6 (>60)
[2018-11-22] MEDS ORDERED: Perflutren Lipid Microsphere* 3 ML VIAL ONE (07:57)
[2018-11-22] MEDS ORDERED: Cyanocobalamin INJ * 1,000 MCG/ML VIAL 1 ML VIAL IM ONE (08:40)
[2018-11-22] MEDS: Aspirin EC TAB* 81 MG TAB.EC PO SCH (08:56)
[2018-11-22] MEDS ORDERED: Cyanocobalamin TAB* 500 MCG PO SCH (09:00)
[2018-11-22] MEDS ORDERED: Pantoprazole TAB * 40 MG TAB PO SCH (09:00)
--- NOTE | 2018-11-22 10:16 | ECHO ---
*[facility]* [place] [address] Fax #: [phone] Transthoracic Echocardiogram Patient: Raza Funes : 1960 Study Date: 11/22/2018 Age: 58 Gender: M HR: 63 bpm Height: 72 in /182.9 cm BSA: 2.44 m^2 Weight: 274.4 lb /124.7 kg BMI: 37.3 kg/m^2 *Panel Saw Operator: * Roxann Bryant [facility] *Referring Physician: * Kenji Post *Reading Physician: * Sb Rivera MD Indications: CVA. History: Risk factors: Former tobacco use. Conclusions Summary: - Left ventricle: The cavity size is normal. Wall thickness is moderately increased. Systolic function is at the lower limits of normal. The estimated ejection fraction is 50-55%. Wall motion is normal; there are no regional wall motion abnormalities. - Right ventricle: Systolic function is normal. - Atrial septum: A PFO is not demonstrated by color Doppler or agitated saline contrast. - Mitral valve: There is trace regurgitation. - Aortic valve: There is no evidence of stenosis. There is no significant regurgitation. - Tricuspid valve: There is physiologic regurgitation. - Pericardium, extracardiac: There is no significant pericardial effusion. - Pulmonary arteries: Systolic pressure can not be accurately estimated. - Compared to study of 02/07/04, there is little change. Study data: Transthoracic echocardiogram. Procedure: Transthoracic echocardiography was performed. Image quality was fair. Intravenous Definity , 6 mlswas administered. A bubble study was performed. Complete 2D, spectral Doppler, and color flow Doppler. Location: Bedside. Patient status: Inpatient. Patient room number: 444-01. Rhythm: Normal sinus rhythm. Findings Left ventricle: The cavity size is normal. Wall thickness is moderately increased. Systolic function is at the lower limits of normal. The estimated ejection fraction is 50-55%. Wall motion is normal; there are no regional wall motion abnormalities. Doppler parameters are consistent with abnormal left ventricular relaxation (grade 1 diastolic dysfunction). Right ventricle: The cavity size is mildly dilated. Systolic function is normal. Left atrium: The atrium is mildly dilated. Right atrium: The atrium is mildly dilated. Atrial septum: A PFO is not demonstrated by color Doppler or agitated saline contrast. Negative bubble study images 87, 92. Mitral valve: The leaflets are mildly thickened. There is no evidence of stenosis. There is trace regurgitation. Aortic valve: The valve is trileaflet. The leaflets are mildly thickened. There is no evidence of stenosis. There is no significant regurgitation. Tricuspid valve: The leaflets are normal thickness. There is no evidence of stenosis. There is physiologic regurgitation. Pulmonic valve: The leaflets are normal thickness. There is no evidence of stenosis. There is trace regurgitation. Aorta: Aortic root: The aortic root is appears normal. Ascending aorta: The ascending aorta is mildly dilated. Aortic arch: The aortic arch is appears normal. Pericardium: There is no significant pericardial effusion. Pulmonary arteries: The main pulmonary artery is normal-sized. Systolic pressure can not be accurately estimated. Systemic veins: Inferior vena cava: The vessel is at the upper limits of normal in size. There is (>= 50%) respiratory change in the IVC dimension. Measurements Left ventricle Value Ref Right atrium continued Value Ref CHAU, LAX 5.1 cm 4.2 - 5.8 SI dim, ES, A4C 5.3 cm 3.4 - 5.3 ESD, LAX 3.4 cm 2.5 - 4.0 Estimated RAP 3 mm Hg --------- FS, LAX 34 % 25 - 43 PW, ED, LAX (H) 1.4 cm 0.6 - 1.0 Aortic valve Value Ref FS 34 % 25 - 43 Nirmal diam, ED 2.4 cm --------- PW, ED (H) 1.4 cm 0.6 - 1.0 Peak v, S 1.06 m/sec --------- PW/ID, ED 0.28 VTI, S 19.4 cm --------- E', lat nirmal, TDI (L) 8.2 cm/sec >=10.0 Mean grad, S 2.0 mm Hg -- ------- E/e', lat nirmal, 7 Peak grad, S 4.0 mm Hg ----- ---- TDI LVOT/AV, VTI ratio 1.03 --------- E', med nirmal, TDI (L) 6.6 cm/sec >=7.0 E/e', med nirmal, 9 Mitral valve Value Ref TDI Peak E 0.56 m/sec --------- E', avg, TDI 7.4 cm/sec Peak A 0.49 m/sec ----- ---- E/e', avg, TDI 8 <=14 Decel time 243 ms -- ------- Peak E/A ratio 1.1 --------- LVOT Value Ref Peak higinio, S 0.91 m/sec Pulmonic valve Value Ref VTI, S 20.0 cm Peak v, S 0.88 m/sec --------- Mean grad, S 2 mm Hg Peak grad, S 3.0 mm Hg --------- Ventricular septum Value Ref Aortic root Value Ref IVS, ED (H) 1.4 cm 0.6 - 1.0 Root diam 3.5 cm <4.5 Root max diam, ED 3.5 cm <4.5 Right ventricle Value Ref CHAU, LAX 3.7 cm Ascending aorta Value Ref CHAU minor ax, (H) 4.6 cm 1.9 - 3.5 AAo AP diam, S 3.7 cm --------- A4C mid Aortic arch Value Ref Left atrium Value Ref Arch diam 2.4 cm --------- AP dim, ES (H) 4.40 cm 3.00 - 4.00 Decending aorta Value Ref ML dim, A4C 4.0 cm Della peak higinio 0.88 m/sec --------- SI dim, A4C 6.0 cm Vol/bsa, ES, 1-p (H) 40 ml/m^2 12 - 37 Inferior vena cava Value Ref A4C Diam 2.1 cm --------- Vol/bsa, ES, A/L (H) 38 ml/m^2 16 - 34 Right atrium Value Ref SI dim, ES 5.3 cm 3.4 - 5.3 ML dim, ES, A4C (H) 4.9 cm 2.6 - 4.4 Legend: (L) and (H) lena values outside specified reference range. Prepared and electronically signed by Sb Rivera MD 11/22/2018 10:15
[2018-11-22 12:13] VITALS: BP 135/84
--- NOTE | 2018-11-22 12:16 | PN ---
Subjective Date of Service: 11/22/18 Length of Stay: 1 Days Neurology is following for the management of paresthesia. Interval History: He still has tingling and numbness on top of the left side of the head, radiating to the left posterior region. He denied any visual disturbance. He denied any symptoms in the upper or lower extremities. He denied any chest pain or shortness of breath. MRI brain, MRA head, MRA neck: unremarkable. There is no area of restricted diffusion to suggest stroke. There are nonspecific T2 hyperintensity in the subcortical region bilaterally, mild, suggesting small vessel ischemic changes. There is no evidence of large vessel intra or extracranial occlusions. TTE: No PFO. EF: 50-55% Vitamin B12: 197 Review of Systems: Denied CP, SOB, or palpitations. Objective Active Medications: Acetaminophen (Tylenol Tab*) 650 mg PO Q6H PRN PRN Reason: MILD PAIN or TEMP > 100.4 Aspirin (Aspirin Ec Tab*) 81 mg PO DAILY [facility] Last Admin: 11/22/18 08:56 Dose: 81 mg Cyanocobalamin (Vitamin B12 Tab*) 1,000 mcg PO DAILY [facility] Last Admin: 11/22/18 08:55 Dose: 1,000 mcg Ondansetron HCl (Zofran Inj*) 4 mg IV Q6H PRN PRN Reason: NAUSEA Pantoprazole Sodium (Protonix Tab*) 40 mg PO DAILY [facility] Last Admin: 11/22/18 08:55 Dose: 40 mg Vital Signs 11/21/18 11/21/18 11/21/18 12:21 12:52 13:00 Temperature Pulse Rate 66 64 Respiratory 17 24 18 Rate Blood Pressure 136/94 154/91 (mmHg) O2 Sat by Pulse 94 Oximetry 11/21/18 11/21/18 11/21/18 13:22 13:52 14:00 Temperature Pulse Rate 61 69 Respiratory 14 9 14 Rate Blood Pressure 135/96 140/91 (mmHg) O2 Sat by Pulse 93 93 Oximetry 11/21/18 11/21/18 11/21/18 14:22 14:52 15:00 Temperature Pulse Rate Respiratory 19 16 19 Rate Blood Pressure 135/91 145/109 (mmHg) O2 Sat by Pulse Oximetry 11/21/18 11/21/18 11/21/18 15:22 15:40 16:05 Temperature 98.7 F 98.0 F Pulse Rate 66 69 Respiratory 18 18 18 Rate Blood Pressure 140/94 140/94 143/93 (mmHg) O2 Sat by Pulse 98 98 Oximetry 11/21/18 11/21/18 11/22/18 19:24 20:58 00:28 Temperature 98 F 97.9 F Pulse Rate 69 63 Respiratory 17 18 Rate Blood Pressure 182/107 139/92 133/90 (mmHg) O2 Sat by Pulse 94 96 Oximetry 11/22/18 11/22/18 11/22/18 03:15 08:00 09:46 Temperature 97.9 F 97.7 F Pulse Rate 66 73 Respiratory 14 18 20 Rate Blood Pressure 136/73 126/78 (mmHg) O2 Sat by Pulse 97 96 Oximetry Intake and Output Last 24 Hours 11/20/18 11/21/18 11/22/18 11/23/18 06:59 06:59 06:59 06:59 Intake Total 660 360 Output Total 700 Balance -40 360 Weight 275 lb Intake: Oral 660 360 Output: Urine 700 Oxygen Devices in Use Now: None Neurology Exam: General: Well nourished, well developed, and in no acute distress HEENT: Normocephelic/atraumatic, sclera anicteric, mucous membranes moist Neck: Supple Extremities: No clubbing, cyanosis, or edema Neurological Findings: Awake, alert, and oriented to person, place, and time. Speech: fluent without dysarthria, repetition intact Cranial Nerve: PERRL, EOM intact, VFF, no nystagmus, face symmetric bilaterally , facial sensation intact, hearing intact to finger rub bilaterally, palate elevates symmetrically, tongue midline, SCM and Trapezius s/s. Motor: s/s throughout, proximal and distal extremities x4 tone/bulk normal Sensation: intact to LT/PP bilaterally upper and lower extremities. No loss of sensation on the extremities. Deep Tendon Reflex: 2+ symmetric in the upper/lower extremities, Babinski - down going Finger to nose, rapid alternating movements intact without tremor, no dysdiadochokinesia Gait: intact with good arm swing and stride Result Diagrams: 11/22/18 06:19 11/22/18 06:19 Assessment/Plan Mr. Raza Funes is a 58-year-old man who presented with paresthesia in the left lateral surface of the head, associated with left arm transient numbness. There was a questionable history of possible slurred speech, but the patient is not convinced that he had any language dysfunction. He still has paresthesia on the left side of the head. His work-up, including an MRI brain without contrast, was unrevealing. B12 was found to be low. The patient was diagnosed with probable neurological complications related to B12. I recommend cyanocobalamin 1,000 mcg IV x 1 now and continue 1,000 mcg PO daily. Repeat a B12 level in 6 months. Added methylmalonic acid and a Lyme screen to the labs. I advised him to come back to the ED If he develops worsening paresthesia, new symptoms of visual disturbance, focal weakness, or impairment in his bowel/ bladder functions. Follow-up with neurology in 6-8 weeks. We will arrange a follow-up.
--- NOTE | 2018-11-22 22:02 | DS ---
CC: Dr. Nation; Dr. Kenji Post; Dr. Lisandro Ortiz * DISCHARGE SUMMARY: DATE OF ADMISSION: 11/21/18 DATE OF DISCHARGE: 11/22/18 PRIMARY CARE PROVIDER: Dr. Nation. MY ATTENDING FOR THIS DISCHARGE: Dr. Aleta Zavala.* (DICTATED BY JERRY QUINN NP) HOSPITAL COURSE: Please refer to admitting H and P on 11/21/18, but in short, Mr. Funes is a 58-year-old male patient with past medical history significant for GERD who presented to the emergency department with complaints of some paresthesias on the left side of his face and on the top of his head. The patient states that these symptoms persisted for some 6 hours, but denied any other accompanying symptoms. He was seen in the emergency department for TIA versus CVA. It was questionable whether these findings represented a complex migraine, also versus some cerebral vascular accident. The patient denied that he had any history of migraines or headache disorders in the past. He was seen by Dr. Post of Neurology, who did recommend that the patient be admitted for a workup to rule out CVA. His CT of the head initially was negative. He had MRI and MRA of the head and neck which were negative for any vessel occlusion or acute stroke. He had an echocardiogram of the heart which was also negative and did not demonstrate any patent foramen ovale indicating any cardioembolic event. His telemetry also did not show any abnormalities such as atrial fibrillation. His only unusual findings were that he did have a low B12 level which could be the likely cause of this paresthesias. It is not uncommon for low B12 level to cause numbness and tingling. Dr. Post did recommend aggressive supplementation with B12 both in the hospital and at discharge. He did receive oral supplementation and intramuscular dose of 1000 mcg each prior to discharge today, and Dr. Post did not feel that there was an indication to start the patient on aspirin and a statin. His fasting lipid panel also did not indicate that the patient should be started on statin either. I did have a discussion with the patient regarding how he was feeling today. REVIEW OF SYSTEMS: He denies any fever, fatigue, or chills. No overt headache. He does state that the paresthesias and tingling in his head is improved, still somewhat present but better than it was on admission. He denies any blurry vision or other visual disturbances. No dizziness. He does feel he has a steady gait. He denies any shortness of breath or chest pain. No nausea, no vomiting, no urinary complaints, no arthralgias or myalgias, and no further constitutional complaints. PHYSICAL EXAMINATION: Reveals a well-appearing gentleman in no acute distress. Vital signs are blood pressure 135/84, heart rate 79, respiratory rate 20, O2 saturation 96% on room air with a temperature of 98.2. HEENT: The patient is atraumatic and normocephalic. PERRLA. Extraocular movements are intact. Nonicteric sclerae. Oral mucosa is moist. Tongue is midline. Neck is supple and nontender. No JVD noted. No carotid bruits auscultated. Cardiovascular: S1 and S2 present. Rate and rhythm are regular. No murmurs, gallops, or rubs noted. Regular sinus rhythm on tele. Lungs are clear bilaterally to auscultation with no wheezing, rhonchi, or rales. Abdomen: Soft, nontender, and nondistended. Positive bowel sounds in all 4 quadrants. : Deferred. Musculoskeletal: No clubbing, no cyanosis, and no edema. +2 distal pulses palpable. Full range of motion. Steady gait. Gross motor and sensation are intact. Neurologic is intact. There is no focal deficit. Psychiatric: Cooperative and appropriate. LABORATORY DATA: WBC 6.3, RBC 4.88, hemoglobin 15.4, hematocrit 44, platelets 231. Sodium 138, potassium 3.9, chloride 106, CO2 of 25, BUN 14, creatinine 0.88 , GFR 88.6, glucose 100. A1c 5.5. Calcium 9.1, magnesium 2.0. Bilirubin 0.60 , AST 16, ALT 18, alk phos 72. Troponin 0.00. Total protein 6.9, albumin 4.2, globulin 2.7, albumin-globulin ration of 1.6. Triglycerides 123, total cholesterol 207, LDL 140, HDL 42.3. B12 of 197. TSH 1.10. IMAGING: CT of the brain showed no acute intracranial pathology. MRI of the brain showed no restricted diffusion to suggestion acute infarct, shows there are a few scattered small foci of elevated T2/FLAIR signal within the periventricular and subcortical white matter. All these findings are nonspecific, they can be seen in association with migraine headache as a sequela of the previous infection or inflammation and chronic small vessel ischemia, demyelinating disease are also within the differential, but is considered less likely in the absence of appropriate clinical data. MRA of the head and neck showed no aneurysm, vascular malformation, occlusion, or stenosis of the visualized intracranial circulation and also no internal carotid artery stenosis by NASCET criteria. Transthoracic echocardiogram shows ejection fraction of 50% to 55%. PFO was not demonstrated. Mitral valve shows trace regurg. Aortic valve, no evidence of stenosis. Tricuspid valve, there is no physiologic regurg. Pericardium shows no pericardial effusion. Pulmonary arteries, systolic pressure could not be accurately estimated. Compared to a study of 02/07/04, there is a little change. DISCHARGE DIAGNOSES: 1. Left-sided head paresthesia. 2. Vitamin B12 deficiency. MEDICATIONS: New medications include: 1. Vitamin B12 oral supplement 1000 mcg p.o. daily to start tomorrow. 2. Vitamin B12 injections 1000 mcg monthly to start on 12/23/18. Home medications to be continued: 1. Mobic 15 mg p.o. daily. 2. Omeprazole 20 mg p.o. daily. DISPOSITION: The patient was discharged to home in stable condition. FOLLOWUP: The patient was instructed to follow up with his primary care providers, Dr. Lisandro Ortiz in the next 4 to 7 days; Dr. Kenji Post, follow up as needed. The patient can return to work unrestricted after discharge from the hospital today. TIME SPENT: 35 minutes in discharge planning. JERRY QUINN NP [id number]/[facility] #: [id number] RUCHI
== END 2018-11-22 13:35 | disposition home or self-care (01) ==
LOC: ED 10:39 → MEDTELE 15:33
PROVIDERS: ADMIT Internal Medicine; ATTEND Hospitalist
DX: R20.2 Paresthesia of skin (principal); E53.8 Deficiency of other specified B group vitamins; Z79.899 Other long term (current) drug therapy; I10 Essential (primary) hypertension; E78.00 Pure hypercholesterolemia, unspecified; K21.9 Gastro-esophageal reflux disease without esophagitis
CPT/HCPCS: 36415; 70450; 70544; 70547; 70551; 80048; 80053; 80061; 82607; 83036; 83735; 84443; 84484; 85025; 85610; 86618; 93306; 96372; 99284; A9270-GY; C8929; G0378; J3420

== ENCOUNTER 2019-04-14 17:41 | Emergency (ER) | payer BC ==
--- OUTSIDE RECORDS SUMMARY | 2019-04-14 17:46 | XMS REPORT | Continuity of Care Document ---
:1960 External Reference #:[id number] Author Name Muriel Roberson M.D. (transmitted by agent of provider Aracely Frazier) Address [address] [place] [address] Care Team Providers Name Role Phone Lisandro Ortiz DO - Family Care Team Information [employer] [employer] Medicine Problems Active Problems Provider Date Localized, primary osteoarthritis Muriel Roberson M.D. Onset: 03/21/2018 Social History Type Date Description Comments Sex Unknown Tobacco Use Start: Unknown currently smokes 1/2 Pack Daily Tobacco Use Start: Unknown Resumed 2008; (+) former smoker up to 3 ppd in , began age 38 Smoking Status Reviewed: 02/20/19 Resumed 2008; (+) former smoker up to 3 ppd in , began age 38 ETOH Use Occasionally consumes alcohol Tobacco Use Start: Unknown End: Patient is a former smoker Unknown Exercise Type/Frequency Exercises sporadically Exercise Type/Frequency Gym 1x per week Allergies, Adverse Reactions, Alerts Active Allergies Reaction Severity Comments Date Wellbutrin urticaria, angioedema 02/22/2008 Medications Active Medications SIG Qnty Indications Ordering Provider Date Gabapentin 1 by mouth at 30caps Agapito Ruth MD 12/16/2018 300mg bedtime Capsules Meloxicam Take One Tablet 30tabs Muriel Roberson, 10/22/2018 15mg Tablets By Mouth Every M.D. Day Omeprazole Unknown Medications Administered in Office Medication SIG Qnty Indications Ordering Provider Date Synvisc Or Synvisc-One Injection 1 Muriel Roberson M.D. 02/20/2019 MG Injection Synvisc Or Synvisc-One Injection 1 Muriel Roberson M.D. 02/13/2019 MG Injection Synvisc Or Synvisc-One Injection 1 Muriel Roberson M.D. 02/06/2019 MG Injection Depomedrol 40MG Muriel Roberson M.D. 09/09/2018 Injection Depomedrol 40MG Muriel Roberson M.D. 06/10/2018 Injection Depomedrol 40MG Muriel Roberson M.D. 03/21/2018 Injection Immunizations CPT Code Status Date Vaccine Lot # [id number] Given 12/12/2008 Influenza Virus Vaccine, Pandemic Formulation 23727 Given 12/12/2008 Administration Swine Flu Shot [id number] Given 02/22/2008 Tdap - Tetanus/Diptheria/Acellular Pertussis 53150 Given 02/22/2008 Tdap - Tetanus/Diptheria/Acellular Pertussis [id number] 14963 Given 11/21/2007 Influenza Virus 3Yrs & Over [id number] 13093 Given 11/26/1998 Td (History By Patient) Vital Signs Date Vital Result Comment 02/20/2019 8:10am Height 73 inches 6'1" Heart Rate 72 /min BP Systolic 160 mmHg BP Diastolic 92 mmHg Respiratory Rate 18 /min Pain Level 3 02/13/2019 8:44am Height 73 inches 6'1" Heart Rate 68 /min BP Systolic 130 mmHg BP Diastolic 86 mmHg Respiratory Rate 16 /min Body Temperature 97.2 F Pain Level 3 Results Description No Information Available Procedures Date Code Description Status 02/20/2019 Inject/Drain Joint/Bursa Major W/O US Completed 02/13/2019 Inject/Drain Joint/Bursa Major W/O US Completed 02/06/201982815 Inject/Drain Joint/Bursa Major W/O US Completed 11/22/2018 04353 ECHO Transthorasic Realtime 2D W Doppler & Color Flow Completed Hosp 09/09/2018 Inject/Drain Joint/Bursa Major W/O US Completed 12/11/2002 77831551 Colonoscopy Completed Medical Devices Description No Information Available Encounters Type Date Location Provider Dx Diagnosis Office Visit 12/16/2018 [facility] Muriel Roberson, M17.12 Unilateral primary 9:45a at [facility].Alejo osteoarthritis, left knee M25.562 Pain in left knee Office Visit 11/22/2018 [facility] Post, R20.2 Paresthesia of 7:00a Clinic skin E53.8 Deficiency of other specified B group vitamins Office Visit 11/22/2018 10:40a [facility] Miley R20.2 Paresthesia of Assoc,meliton Reyes, skin Hospitalists [employer] D51.9 Vitamin B12 deficiency anemia, unspecified Office Visit 11/21/2018 [facility] Post, R20.2 Paresthesia of 7:00a Clinic skin Office Visit 11/21/2018 [facility] Shahid R20.2 Paresthesia of 10:39a Assoc, Hospitalists VIKKI Da Silva skin Assessments Date Code Description Provider 02/20/2019 M17.12 Unilateral primary osteoarthritis, left Murielbrittny Roberson M.D. knee 02/20/2019 M25.562 Pain in left knee Murielbrittny Roberson M.D. 02/20/2019 M25.462 Effusion, left knee Murielbrittny Roberson M.D. 02/13/2019 M17.12 Unilateral primary osteoarthritis, left Murielbrittny Roberson M.D. knee 02/13/2019 M25.562 Pain in left knee Muriel Da, M.D. 02/13/2019 M25.462 Effusion, left knee Murielbrittny Roberson M.D. 02/06/2019 M17.12 Unilateral primary osteoarthritis, left MurielAnthony Cuellar.Ale. knee 02/06/2019 M25.562 Pain in left knee Muriel Da, M.D. 02/06/2019 M25.462 Effusion, left knee Anthony Prasad.D. 12/16/2018 M17.12 Unilateral primary osteoarthritis, left Muriel Da M.D. knee 12/16/2018 M25.562 Pain in left knee Muriel Da, M.D. 11/22/2018 R20.2 Paresthesia of skin Kenji Post MD 11/22/2018 I63.9 Cerebral infarction, unspecified Sb Rivera M.D. 11/22/2018 E53.8 Deficiency of other specified B group Kenji Post MD vitamins 11/22/2018 R20.2 Paresthesia of skin Miley Reyes, [employer] 11/22/2018 D51.9 Vitamin B12 deficiency anemia, Miley Velasquez Eric, TIFFANI unspecified 11/21/2018 R20.2 Paresthesia of skin Kenji Post MD 11/21/2018 R20.2 Paresthesia of skin VIKKI Candelaria 09/09/2018 M25.562 Pain in left knee Muriel Roberson M.D. 09/09/2018 M25.462 Effusion, left knee Muriel Roberson M.D. 09/09/2018 M17.12 Unilateral primary osteoarthritis, left Muriel Roberson M.D. knee Plan of Treatment 02/20/2019 - Muriel Roberson M.D.M17.12 Unilateral primary osteoarthritis, left kneeFollow up:Follow up: As [id number] Pain in left kneeM25.462 Effusion, left knee Functional Status Description No Information Available Mental Status Description No Information Available Referrals Description No Information Available
[2019-04-14 17:55] VITALS: BP 155/95
--- NOTE | 2019-04-14 18:21 | UC ---
UC General HPI - HPI Summary HPI Summary: Patient states he has a history of athletes foot in the past and has been giving cream for it. Past few days has noticed increase in pain/itching. Insides of his ankles is red, sore and itchy. 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 Changes his socks daily. No numbness or tingling. Meds; reviewed - History of Current Complaint Chief Complaint: UCLowerExtremity Stated Complaint: FEET PAIN Time Seen by Provider: 04/14/19 18:08 Pain Intensity: 8 - Allergy/Home Medications Allergies/Adverse Reactions: Allergies Allergy/AdvReac Type Severity Reaction Status Date / Time bupropion [From Wellbutrin] Allergy Severe Rash Verified 04/14/19 17:55 Home Medications: Home Medications Meloxicam [Mobic] 15 mg PO DAILY 11/21/18 [History Confirmed 04/14/19] Omeprazole 20 mg PO DAILY 11/21/18 [History Confirmed 04/14/19] Cyanocobalamin INJ * [Vitamin B12 INJ *] 1,000 mcg IM Q30D #1 vial 11/22/18 [Rx Confirmed 04/14/19] Cyanocobalamin TAB* [Vitamin B12 TAB*] 1,000 mcg PO DAILY tab 11/22/18 [Rx Confirmed 04/14/19] Terbinafine HCl [Antifungal] 30 gm TOPICAL BID #1 cream..g. 04/14/19 [Rx] PMH/Surg Hx/FS Hx/Imm Hx Previously Healthy: Yes - Surgical History Surgical History: Yes Surgery Procedure, Year, and Place: [facility]- FX (left) ankle + hardware, [facility]- (left) ulner nerve release & (left) little finger,. [facility]- (left) ankle; remove left distal fibula plate & screws - Family History Known Family History: Positive: Hypertension - Social History Alcohol Use: Weekly Alcohol Amount: 2-3/ week Substance Use Type: None Smoking Status (MU): Former Smoker Type: Cigarettes Length of Time of Smoking/Using Tobacco: 10 years Have You Smoked in the Last Year: No When Did the Patient Quit Smoking/Using Tobacco: 2010 - Immunization History Most Recent Tetanus Shot: unknown Review of Systems All Other Systems Reviewed And Are Negative: Yes Physical Exam Triage Information Reviewed: Yes Appearance: Well-Appearing Vital Signs: Initial Vital Signs Temp 99.8 F 04/14/19 17:51 Pulse 71 04/14/19 17:51 Resp 18 04/14/19 17:51 BP 155/95 04/14/19 17:51 Pulse Ox 97 04/14/19 17:51 Vital Signs Reviewed: Yes Skin: Positive: Other - b/l medial side of feet, diffuse confluent puritic erythema. Good pulses. no skin breakdown. No lesions Course/Dx - Course Course Of Treatment: This is a 59 yr old with b/l foot pain and itchying Plan Start topical cream to affected area 2x/day If no improvement in symptoms despite treatment or recurrence of symptoms despite treatment, recommend follow up with PCP as you may need to go on oral medication to treat it. - Diagnoses Provider Diagnosis: Tinea pedis Discharge ED - Sign-Out/Discharge Documenting (check all that apply): Patient Departure All imaging exams completed and their final reports reviewed: No Studies - Discharge Plan Condition: Good Disposition: HOME Prescriptions: Terbinafine HCl [Antifungal] 30 gm TOPICAL BID #1 cream..g. Patient Education Materials: Athlete's Foot (ED) Referrals: Lisandro Ortiz DO [Primary Care Provider] - Additional Instructions: Start topical cream to affected area 2x/day If no improvement in symptoms despite treatment or recurrence of symptoms despite treatment, recommend follow up with PCP as you may need to go on oral medication to treat it. - Billing Disposition and Condition Condition: GOOD Disposition: Home
== END 2019-04-14 18:24 | disposition home or self-care (01) ==
LOC: UCEAST 17:41
DX: B35.3 Tinea pedis (principal); Z88.8 Allergy status to other drugs, medicaments and biological substances; Z87.891 Personal history of nicotine dependence
CPT/HCPCS: 99212; G0463

== ENCOUNTER 2019-09-19 08:25 | Observation (INO) ==
[~2019-09-19 08:25] MED LIST changes: +Buffered Lidocaine 1% SYRIN 1 ml INTRADERM ONE; +Lactated Ringers 1000 ml BAG 1,000 ML IV SCH; -Sulfamethox/Trimethoprim DS 800/160* TAB PO ONE
[2019-09-19] MEDS ORDERED: ceFAZolin 2 GM PREMIX 2 GM/50 ML BAG ONE (08:41)
[2019-09-19] MEDS ORDERED: Buffered Lidocaine 1% SYRIN 1 ml INTRADERM ONE (08:42)
[2019-09-19] MEDS ORDERED: ceFAZolin 1 GM ADVAN 1 GM ADDV.VIAL IVPB ONE (08:42)
[2019-09-19] MEDS ORDERED: Midazolam 5 mg/5 ml VIAL 1 mg/ml 5 ml VIAL (5 mg) ONE (09:11)
[2019-09-19] MEDS ORDERED: Phenylephrine IV 10 MG/ML 1 ml VIAL ONE (09:11)
[2019-09-19] MEDS ORDERED: Propofol 10 MG/ML 20 ML BTL ONE (09:11)
[2019-09-19] MEDS ORDERED: Bupivacaine 0.5% SDV PF 30ML VIAL ONE (10:59)
[2019-09-19] MEDS ORDERED: Rocuronium 50 mg VIAL 10 mg/ml 5 ml VIAL (50 mg) ONE (12:32)
[2019-09-19] MEDS ORDERED: Phenylephrine 40 mcg/mL 10mL (400mcg) SYRINGE ONE (13:19)
[2019-09-19] MEDS ORDERED: Ondansetron 4 mg VIAL 2 MG/ML 2 ml VIAL IV PRN ×2 (13:51→14:38)
[2019-09-19] MEDS ORDERED: Naloxone 0.4 mg VIAL 0.4 mg/ml 1 ml VIAL IV PRN (13:51)
[2019-09-19] MEDS ORDERED: fentaNYL 100 mcg/2 ml 50 MCG/ML VIAL IV PRN (13:51)
[2019-09-19] MEDS ORDERED: Ondansetron ODT 4 mg TAB 4 MG TAB PO PRN (14:38)
[2019-09-19] MEDS ORDERED: Magnesium Hydroxide LIQ 30 ML UDC PO PRN (14:38)
[2019-09-19] MEDS ORDERED: Morphine 2 MG/ML SYRINGE IV PRN (14:38)
[2019-09-19] MEDS ORDERED: diPHENhydraMINE 25 mg TAB PO PRN (14:38)
[2019-09-19] MEDS ORDERED: diPHENhydraMINE IV 50 MG/ML 1 ml VIAL (BENADRYL) IV PRN (14:38)
[2019-09-19] MEDS ORDERED: Lactulose 30 ml UDC PO PRN (14:38)
[2019-09-19] MEDS: Lactated Ringers 1000 ml BAG 1,000 ML IV SCH (16:06)
[2019-09-19] MEDS: oxyCODONE/Acetamin 5/325 mg TAB PO PRN ×2 (17:02→21:08)
[2019-09-19] MEDS: Magnesium Hydroxide LIQ 30 ML UDC PO SCH (21:08)
[2019-09-19] MEDS: ceFAZolin 1 GM ADVAN 1 GM in NS 0.9% 50 ML 50 ML IVPB SCH (21:09)
[2019-09-20] MEDS: Lactated Ringers 1000 ml BAG 1,000 ML IV SCH (02:31)
[2019-09-20] MEDS: oxyCODONE/Acetamin 5/325 mg TAB PO PRN (02:32)
[2019-09-20] MEDS: ceFAZolin 1 GM ADVAN 1 GM in NS 0.9% 50 ML 50 ML IVPB SCH ×2 (04:44→12:55)
[2019-09-20 06:35] LABS: Hematocrit 36 % (42-52); Mean Platelet Volume 8.2 fL (7.4-10.4); Platelet Count 190 10^3/uL (150-450)
[2019-09-20 06:50] LABS: Calcium 8.7 mg/dL (8.6-10.3); EGFR African American 104.2 (>60); EGFR Non-African American 86.1 (>60); Potassium 4.3 mmol/L (3.5-5.0)
[2019-09-20] MEDS: Magnesium Hydroxide LIQ 30 ML UDC PO SCH (08:41)
[2019-09-20] MEDS ORDERED: Vitamin THERAPEUTIC TAB PO SCH (09:00)
[2019-09-20 11:17] VITALS: BP 121/66
== END 2019-09-20 14:30 | disposition home or self-care (01) ==
LOC: SSU 08:25 → OR 08:25
PROVIDERS: ADMIT Orthopaedic Surgery Adult Reconstructive Orthopaedic Surgery; ATTEND Orthopaedic Surgery Adult Reconstructive Orthopaedic Surgery

== ENCOUNTER 2020-01-12 15:13 | Observation (INO) ==
[2020-01-12 16:32] LABS: ABS Lymphocytes 0.4 10^3/ul (1.0-4.8); ABS Monocytes 0.2 10^3/ul (0-0.8); Hematocrit 41 % (42-52); Hemoglobin 14.2 g/dL (14.0-18.0); Lymphocyte % 4.6 %; Mean Corpuscular HGB Conc 35 g/dL (31-36); Mean Corpuscular Hemoglobin 31 pg (27-31); Mean Corpuscular Volume 87 fL (80-94); Mean Platelet Volume 7.9 fL (7.4-10.4); Platelet Count 238 10^3/uL (150-450); Red Blood Count 4.66 10^6 /uL (4.18-5.48); Red Cell Distribution Width 14 % (10-15); White Blood Count 8.6 10^3/uL (3.5-10.8)
[2020-01-12 16:43] LABS: Activated Partial Thrombo Time 29.4 seconds (26.0-38.0); INR 1.39 (0.82-1.09)
[2020-01-12 16:58] LABS: Albumin 3.5 g/dL (3.2-5.2); Albumin/Globulin Ratio 1.1 (1-3); BUN/Creatinine Ratio 17.1 (8-20); C Reactive Protein 268.72 mg/L (<8.01); Calcium 8.8 mg/dL (8.6-10.3); EGFR African American 87.2 (>60); Globulin 3.3 g/dL (2-4); Potassium 3.5 mmol/L (3.5-5.0); Total Bilirubin 0.6 mg/dL (0.2-1.0); Total Protein 6.8 g/dL (6.4-8.9)
[2020-01-12 17:00] LABS: Troponin I 0.01 ng/mL (<0.03)
[2020-01-12 17:02] LABS: CKMB ng/mL 1.1 ng/mL (0.6-6.3)
[2020-01-12] MEDS ORDERED: Dexamethasone IV 4 MG/ML VIAL 1 ml VIAL IV SLOW PU ONE (17:33)
[2020-01-12] MEDS ORDERED: Iohexol 350 (CONTRAST) 500 ML MDV IV ONE (17:40)
[2020-01-12] MEDS ORDERED: Albuterol HFA INHALER 8 gm MDI INH PRN (18:31)
[2020-01-12] MEDS ORDERED: Ondansetron 4 mg VIAL 2 MG/ML 2 ml VIAL IV PRN (18:32)
[2020-01-12 21:32] LABS: Influenza A Molecular Negative (Negative); Influenza B Molecular Negative (Negative)
[2020-01-12] MEDS ORDERED: Remdesivir 5 MG/ML LIQ IV Vial 200 MG in NS 0.9% 250 ml 210 ML IV ONE (22:00)
[2020-01-12] MEDS: Enoxaparin 60 MG/0.6 ML SYR SUBCUT SCH (22:13)
[2020-01-12] MEDS: NS 0.9% 1000 ml BAG 1,000 ML IV SCH (23:53)
[2020-01-13 01:04] LABS: Urine Appearance Cloudy; Urine Bilirubin Negative (Negative); Urine Blood Negative (Negative); Urine Color Yellow; Urine Glucose 1+(50 mg/dL) (Negative); Urine Ketones Negative (Negative); Urine Nitrite Negative (Negative); Urine Protein 2+(100 mg/dL) (Negative); Urine Specific Gravity 1.042 (1.010-1.030); Urine Urobilinogen Negative (Negative)
[2020-01-13 01:11] LABS: Urine Bacteria Absent (Absent); Urine Red Blood Cell Absent (Absent); Urine White Blood Cell Trace(0-5/hpf) (Absent)
[2020-01-13 06:34] LABS: ABS Lymphocytes 0.4 10^3/ul (1.0-4.8); ABS Monocytes 0.2 10^3/ul (0-0.8); ABS Neutrophils 9.5 10^3/ul (1.5-7.7); Hematocrit 40 % (42-52); Hemoglobin 14.2 g/dL (14.0-18.0); Mean Corpuscular HGB Conc 35 g/dL (31-36); Mean Corpuscular Hemoglobin 31 pg (27-31); Mean Corpuscular Volume 87 fL (80-94); Platelet Count 244 10^3/uL (150-450); Red Blood Count 4.64 10^6 /uL (4.18-5.48); Red Cell Distribution Width 13 % (10-15); White Blood Count 10.1 10^3/uL (3.5-10.8)
[2020-01-13 06:51] LABS: Calcium 8.8 mg/dL (8.6-10.3); EGFR African American 119.3 (>60); EGFR Non-African American 98.6 (>60); Potassium 3.6 mmol/L (3.5-5.0)
[2020-01-13] MEDS: Enoxaparin 60 MG/0.6 ML SYR SUBCUT SCH ×2 (10:56→22:09)
[2020-01-13] MEDS: NS 0.9% 1000 ml BAG 1,000 ML IV SCH (11:11)
[2020-01-13] MEDS ORDERED: Remdesivir 5 MG/ML LIQ IV Vial 100 MG in NS 0.9% 250 ml 230 ML IV SCH (22:00)
[2020-01-14] MEDS ORDERED: Influenza VAC *QUAD* 2020-21* 0.5 ML SYRINGE IM ONE (09:00)
[2020-01-14] MEDS: Enoxaparin 60 MG/0.6 ML SYR SUBCUT SCH (09:02)
[2020-01-14 09:03] VITALS: BP 138/84
== END 2020-01-14 13:25 | disposition home or self-care (01) ==
LOC: ED 15:13 → MED 15:13
PROVIDERS: ADMIT Internal Medicine; ATTEND Internal Medicine

== ENCOUNTER 2020-12-19 11:10 | Observation (INO) ==
[~2020-12-19 11:10] MED LIST changes: +DiMENhydriNATE IV 50 mg/ml 1 ml VIAL IV PUSH ONE; +DiMENhydriNATE IV 50 mg/ml 1 ml VIAL ONE; +HYDROcodone/ACETAMIN 5/325 mg TAB PO PRN; +Metoclopramide 5 MG/ML VIAL (10 mg) IV PRN; +Naloxone 0.4 mg VIAL 0.4 mg/ml 1 ml VIAL IV PRN; +Ondansetron 4 mg VIAL 2 MG/ML 2 ml VIAL IV PRN; +ceFAZolin 2 GM in NS PREMIX 2 GM/100 ML BAG IVPB ONE
[2020-12-19] MEDS ORDERED: Dexamethasone IV 4 MG/ML VIAL 1 ml VIAL ONE ×2 (12:20→12:48)
[2020-12-19] MEDS ORDERED: fentaNYL 100 mcg/2 ml 50 MCG/ML VIAL ONE ×3 (12:20→16:17)
[2020-12-19] MEDS ORDERED: Bupivacaine 0.5% SDV PF 30ML VIAL ONE (12:21)
[2020-12-19] MEDS ORDERED: Ropivacaine 5 MG/ML 20 ML VIAL 0.5% (100 MG) ONE (12:32)
[2020-12-19] MEDS ORDERED: fentaNYL 250 mcg/5 ml 50 MCG/ML 5 ml VIAL (250 MCG) ONE (12:48)
[2020-12-19] MEDS ORDERED: Ondansetron 4 mg VIAL 2 MG/ML 2 ml VIAL ONE (12:48)
[2020-12-19] MEDS ORDERED: Propofol 10 MG/ML 20 ML BTL ONE (12:48)
[2020-12-19] MEDS ORDERED: Lidocaine 2% PF 5 ML VIAL ONE ×2 (12:49→15:36)
[2020-12-19] MEDS ORDERED: Rocuronium 50 mg VIAL 10 mg/ml 5 ml VIAL (50 mg) ONE (12:49)
[2020-12-19] MEDS ORDERED: HYDROmorphone 1 MG/1 ML SYRINGE ONE (12:49)
[2020-12-19] MEDS ORDERED: Midazolam 2 mg/2 ml VIAL 1 mg/ml 2 ml VIAL (2 mg) ONE (13:56)
[2020-12-19] MEDS ORDERED: Ondansetron 4 mg VIAL 2 MG/ML 2 ml VIAL IV PRN (14:10)
[2020-12-19] MEDS ORDERED: Ondansetron ODT 4 mg TAB 4 MG TAB PO PRN (14:10)
[2020-12-19] MEDS ORDERED: Magnesium Hydroxide LIQ 30 ML UDC PO PRN (14:10)
[2020-12-19] MEDS ORDERED: Lactulose 30 ml UDC PO PRN (14:10)
[2020-12-19] MEDS ORDERED: Morphine 2 MG/ML SYRINGE IV PRN (14:10)
[2020-12-19] MEDS ORDERED: diPHENhydraMINE IV 50 MG/ML 1 ml VIAL (BENADRYL) IV PRN (14:10)
[2020-12-19] MEDS ORDERED: diPHENhydraMINE 25 mg TAB PO PRN (14:10)
[2020-12-19] MEDS ORDERED: EPHEDrine (Pressors) 50 MG/ML VIAL ONE (14:40)
[2020-12-19] MEDS ORDERED: Sugammadex 500 MG/5 ML 5 ml VIAL IV PUSH ONE (15:13)
[2020-12-19] MEDS: fentaNYL 100 mcg/2 ml 50 MCG/ML VIAL IV PRN ×8 (16:05→16:40)
[2020-12-19] MEDS: Lactated Ringers 1000 ml BAG 1,000 ML IV SCH (17:42)
[2020-12-19] MEDS: Magnesium Hydroxide LIQ 30 ML UDC PO SCH (20:17)
[2020-12-19] MEDS: ceFAZolin 1 GM ADVAN 1 GM in NS 0.9% 50 ML 50 ML IVPB SCH (22:47)
[2020-12-20] MEDS: Lactated Ringers 1000 ml BAG 1,000 ML IV SCH (02:59)
[2020-12-20 05:59] LABS: Hematocrit 38 % (42-52); Hemoglobin 12.9 g/dL (14.0-18.0); Mean Platelet Volume 7.7 fL (7.4-10.4); Platelet Count 208 10^3/uL (150-450)
[2020-12-20 06:19] LABS: Calcium 8.7 mg/dL (8.6-10.3); Potassium 4.3 mmol/L (3.5-5.0)
[2020-12-20] MEDS: ceFAZolin 1 GM ADVAN 1 GM in NS 0.9% 50 ML 50 ML IVPB SCH ×2 (07:34→13:28)
[2020-12-20] MEDS: Magnesium Hydroxide LIQ 30 ML UDC PO SCH (08:47)
[2020-12-20] MEDS ORDERED: Pneumococcal Vac 23-Polyvalent IM ONE (09:00)
[2020-12-20] MEDS ORDERED: Vitamin THERAPEUTIC TAB PO SCH (09:00)
[2020-12-20] MEDS ORDERED: Flu vaccine *QUAD* 2021-22* 0.5 ML SYRINGE IM ONE (09:00)
[2020-12-20 11:56] VITALS: BP 132/77
== END 2020-12-20 14:15 | disposition home or self-care (01) ==
LOC: OR 11:10 → SSU 11:10 → EDSTATUS 13:00
PROVIDERS: ADMIT Orthopaedic Surgery Adult Reconstructive Orthopaedic Surgery; ATTEND Orthopaedic Surgery Adult Reconstructive Orthopaedic Surgery